=== PATIENT | female | born 1955 | race Caucasian/White ===

== ENCOUNTER 2018-12-15 23:20 | Inpatient (IN) | payer OTHER ==
[~2018-12-15] VITALS: Ht 162.6 cm; Wt 66.1 kg
[2018-12-16] VITALS (20 sets, daily range): BP systolic 88–115; BP diastolic 46–75
[2018-12-16 01:21] LABS: CHOLESTEROL 177 mg/dL (<200); HDL CHOLESTEROL 108 mg/dL (>40); LDL CHOLESTEROL 57 mg/dL (<100); TC:HDL 1.6 Ratio (Not establshd); TRIGLYCERIDE 60 mg/dL (<150); VLDL 12 mg/dL (<40)
[2018-12-16 01:26] LABS: SERUM ASSESSMENT Clear
[2018-12-16] MEDS ORDERED: MEDI-LYTE TABL1 EACH PO (01:59)
[2018-12-16] MEDS ORDERED: METFORMIN HCL500 MG PO (02:00)
[2018-12-16] MEDS ORDERED: LIORESAL 10 MG10 MG PO (02:01)
[2018-12-16] MEDS ORDERED: BUSPIRONE HCL10 MG PO (02:02)
[2018-12-16] MEDS ORDERED: CLARITIN10 MG PO (02:03)
[2018-12-16] MEDS ORDERED: PROPRANOLOL 1010 MG PO (02:05)
[2018-12-16] MEDS ORDERED: GUANFACINE HCL E2 MG PO (02:08)
[2018-12-16] MEDS ORDERED: EFFEXOR XR75 MG PO (02:37)
[2018-12-16] MEDS ORDERED: FLOMAX0.4 MG PO (02:37)
[2018-12-16] MEDS ORDERED: OMEPRAZOLE 20 M20 M1 PO (02:38)
[2018-12-16] MEDS ORDERED: MELOXICAM15 MG PO (02:38)
[2018-12-16] MEDS ORDERED: ZOCOR20 MG PO (02:39)
[2018-12-16] MEDS ORDERED: GABAPENTIN 100100 MG PO (02:40)
[2018-12-16] MEDS ORDERED: TRAMADOL 50 MG50 MG PO (02:41)
[2018-12-16] MEDS ORDERED: HYDROCHLOROTH12.5 M1 PO (02:43)
[2018-12-16] MEDS ORDERED: DEPAKOTE500 MG PO (02:44)
[2018-12-16] MEDS ORDERED: SYMBICORT160 MCG/4. INH (02:46)
[2018-12-16] MEDS ORDERED: KLOR-CON 1010 MEQ PO (02:51)
--- NOTE | 2018-12-16 05:18 | NUR ---
PT ARRIVED FROM [facility] AT 1230AM. PT WAS ON 3L NC, A&0X4. VSS. PT WAS CURRENTLY RATING HER PAIN AT 4/10 SHE GOT 50 MCG OF FENTANYL ENROUTE. ADMISSION ASSESSMENTS DONE. HEPARIN RESTARTED AT 0220 SEE HEPARIN FLOW SHEET. PT COMPLAINED OF CHEST PAIN AGAIN AT 0230 2 DOSES OF NITRO GIVEN, BP TOLERATED THE DOSES WELL, 02 BUMPED UP TO 4L, HEAD BANQUET WAITER/WAITRESS SENDY NOTIFIED, MORPHINE ORDERED, PT REPORT CHEST PAIN RELIEF AFTER MORPHINE WAS ADMINISTERD. ONETIME GI COCKTAIL ALSO ORDERED WELL. PT IS NOW SLEEPING IN ROOM, SHE HAS BEEN NPO SINCE ARRIVAL TO THE UNIT. PT APPEARS STABLE, WILL CONTINUE TO MONITOR
[2018-12-16 07:58] LABS: CALCIUM 8.7 mg/dL (8.5-10.1); CREATININE 1.1 mg/dL (0.6-1.0); MAGNESIUM 1.8 mg/dL (1.8-2.4); POTASSIUM 3.5 mmol/L (3.5-5.1)
--- NOTE | 2018-12-16 08:45 | EKG ---
[address] [address] ELECTROCARDIOGRAM REPORT Name: EVERTON OLIVEIRA Room #: 207-P ADM IN M.R.#: [id number] ������������������ Admission: 12/16/18 ������������������ Attend Phys: Mick Romero MD Discharge: ������������������ Date of : 55 Report #: [id number] ����������������������������������������������������������������� [id number] THIS REPORT FOR: //name// [facility] Test Date: 2018-12-16 Test Time: 06:19:12 Pat Name: EVERTON OLIVEIRA Department: Room: 207 P Gender: F Reporting Coordinator: BRIGID : 1955 Requested By: Georgie Parra Order Number: [id number] MD: Sam Vaughn Measurements Intervals [place] Rate: 83 P: 26 [place]: 130 QRS: 25 QRSD: 88 T: 231 QT: 444 QTc: 522 Interpretive Statements Sinus rhythm Atrial premature complex Abnormal T, consider ischemia, diffuse leads Prolonged QT interval No previous ECG available for comparison Electronically Signed On 12-16-2018 8:45:32 THERMOMETER PRODUCTION WORKER by Sam Vaughn [email or web address] ��������������������������������������������� <ELECTRONICALLY SIGNED> ���������������������������������������� By: Sam Vaughn MD, [facility] ��������������������������������������������� 12/16/18 0845 8 8 Sam Vaughn MD, [facility] /EPI
--- NOTE | 2018-12-16 10:46 | NUR ---
met with patient she admits with chest pain, transfer from [facility]. Patient lives in [place] with spouse. Spouse with emphysema and has home oxygen. Patient reports independent with adls and self care. She reports all needs on one level in independent home. She does not drive, spouse drives. Children live out of town in [place] and [place]. She is up ad everton in room. she plans home independently. She has lever tender once a week to assist with cleaning at home. patient reports independent with cooking. casemgt following
--- NOTE | 2018-12-16 11:23 | 2DMMODE ---
[facility] [address] [place] [address] 2 D/M-MODE ECHOCARDIOGRAM Name: EVERTON OLIVEIRA Room #: 207-P ADM IN M.R.#: [id number] ������������� Admission: 12/16/18 ������������� Attend Phys: Mick Romero, Discharge: ��� ������������� ��� Date of : 55 Date of Service: 12/16/18 1123 �� Report #: [id number] �������� ��������������������������������������������[id number] THIS REPORT FOR: //name// APPROVED REPORT Study performed: 12/16/2018 10:11:17 EXAM: Comprehensive 2D, Doppler, and color-flow Echocardiogram Patient Location: Bedside Room #: 207 Status: routine BSA: 1.71 HR: 93 bpm BP: 104/66 mmHg Rhythm: NSR Other Information Study Quality: Good Indications NSTEMI, CHF. Hx: COPD, HTN, HLP, DM. 2D Dimensions RVDd: 35.10 mm IVSd: 10.03 (7-11mm) LVOT Diam: 20.33 (18-24mm) LVDd: 44.74 mm PWd: 10.31 (7-11mm) Ascending Ao: 28.30 (22-36mm) LVDs: 36.23 (25-40mm) Aortic Root: 32.75 mm Volumes Left Atrial Volume (Systole) Single Plane 4CH: 39.35 mL Single Plane 2CH: 50.32 mL LA ESV Index: 29.00 mL/m2 Aortic Valve AoV Peak Yash.: 1.22 m/s AO Peak Gr.: 5.93 mmHg LVOT Max P.60 mmHg LVOT Max V: 0.81 m/s STEVIE Vmax: 2.15 cm2 Mitral Valve E/A Ratio: 2.1 MV Decel. Time: 130.70 ms MV E Max Yash.: 0.72 m/s [facility] [place] [address] 2 D/M-MODE ECHOCARDIOGRAM Name: EVERTON OLIVEIRA Room #: 207-[facility] IN M.R.#: [id number] ������������� Admission: 12/16/18 ������������� Attend Phys: Mick Romero, Discharge: ��� ������������� ��� Date of : 55 Date of Service: 12/16/18 1123 �� Report #: [id number] �������� ��������������������������������������������[id number] MV A Yash.: 0.35 m/s MV PHT: 37.90 ms IVRT: 65.74 ms Pulmonary Valve PV Peak Yash.: 0.82 m/s PV Peak Gr.: 2.70 mmHg Pulmonary Vein P Vein S: 0.41 m/s P Vein D: 0.52 m/s P Vein S/D Ratio: 0.79 Tricuspid Valve TR Peak Yash.: 2.72 m/s RAP Estimate: 10.00 mmHg TR Peak Gr.: 29.59 mmHg PA Pressure: 40.00 mmHg Left Ventricle The left ventricle is normal size. Apical and adjacent wall severe hypokinesis to akinesis There is normal left ventricular wall thickness. Left ventricular systolic function is severely decreased. LVEF is 25%. Right Ventricle The right ventricle is normal size. Right ventricle is mildly hypokinetic. Atria The left atrium size is normal. The right atrium size is normal. Aortic Valve The aortic valve is normal in structure. No aortic regurgitation is present. There is no aortic valvular stenosis. Mitral Valve The mitral valve is normal in structure. Mild mitral regurgitation. No evidence of mitral valve stenosis. Tricuspid Valve The tricuspid valve is normal in structure. Mild tricuspid regurgitation. Estimated PAP is 40mmHg. Pulmonic Valve The pulmonary valve is normal in structure. Mild pulmonic regurgitation. [facility] [address] [place] [address] 2 D/M-MODE ECHOCARDIOGRAM Name: EVERTON OLIVEIRA Room #: 207-[facility] IN .R.#: [id number] ������������� Admission: 12/16/18 ������������� Attend Phys: Mick Romero, Discharge: ��� ������������� ��� Date of : 55 Date of Service: 12/16/18 1123 �� Report #: [id number] �������� ��������������������������������������������[id number] Great Vessels The aortic root is normal in size. The ascending aorta is normal in size. IVC is normal in size and collapses <50% with inspiration. Pericardium There is no pericardial effusion. <Conclusion> The left ventricle is normal size. LVEF is 25%. Apical and adjacent wall severe hypokinesis to akinesis The aortic valve is normal in structure. The mitral valve is normal in structure. Mild mitral regurgitation. The tricuspid valve is normal in structure. Mild tricuspid regurgitation. Estimated PAP is 40mmHg. The pulmonary valve is normal in structure. Mild pulmonic regurgitation. There is no pericardial effusion. ��������������������������������������������� <ELECTRONICALLY SIGNED> ���������������������������������������� By: Mello Javier MD ��������������������������������������������� 12/16/18 1123 1123 1123 Mello Javier MD /INF
[2018-12-16 12:56] LABS: HEMATOCRIT 35.3 % (37.0-47.0); HEMOGLOBIN 11.5 gm/dL (12.0-15.0); MCH 30.5 pg (26.0-34.0); MCHC 32.5 g/dL (28.0-37.0); RBC 3.75 mil/uL (4.20-5.00); RDW 19.4 % (10.5-14.5); WBC 7.7 thou/uL (4.0-11.0)
--- NOTE | 2018-12-16 17:30 | NUR ---
PATIENT ALERT AND ORIENTED. VSS. RECEIVED PRN PAIN MED WITH PARTIAL RELIEF. HAD CARDIAC CATH THIS AM. RIGHT GROIN INCISION C/D/I. NO HEMATOMA NOTED. ORDERS NOTED. HEPARIN DRIP D/C. NSR ON TELI. NO CONCERNS AT THIS TIME. WILL CONTINUE TO MONITOR.
[2018-12-17] VITALS (7 sets, daily range): BP systolic 93–122; BP diastolic 53–64
[2018-12-17 00:06] LABS: GLYCOHEMOGLOBIN (HGB A1C) 5.2 % (4.8-5.6)
--- NOTE | 2018-12-17 03:28 | NUR ---
AT SHIFT CHANGE PT SLEEPING; ON BED REST UNTIL 20:39; R. GROIN SITE DRY; INTACT; NO HEMATOMA; NO C/O PAIN AT TOUCH; REMAINDED NOT TO MOVE R. LEG FOR ABOUT ONE HOUR AND HALF MORE (20:39); ST. UND[facility]STANDING; SBP BELOW 100'S; MONITORING IT; AT 20:08 BP 92/50; MAP (60); R. GROIN DRESSING DRY; INTACT; NO HEMATOMA; SNOW MAKER NOTIFIED; NO NEW ORDERS; AT 2210 PT. AWAKE; FULL ROM OF R. LEG; NO HEMATOMA PRESENT; PULSE 2/2; BP 105/54 (66); AOX4; NO C/O PAIN; GRAVES D/C AT 2218; ENCOURAGE TO DRINK WATER; [facility]; SBP THROUGH THE NIGHT BETWEEN 90-100'S; NO C/O DIZZINESS; N/V; MONITORING; HR WNL; ASSESSMENT CHARGED; FOLLOWING POC; WILL PASS ON REPORT.
[2018-12-17 05:12] LABS: HEMATOCRIT 31.5 % (37.0-47.0); HEMOGLOBIN 10.5 gm/dL (12.0-15.0); MCH 31.4 pg (26.0-34.0); MCHC 33.4 g/dL (28.0-37.0); RBC 3.35 mil/uL (4.20-5.00); RDW 19.4 % (10.5-14.5); WBC 10.9 thou/uL (4.0-11.0)
[2018-12-17 05:21] LABS: CALCIUM 9.2 mg/dL (8.5-10.1); CREATININE 1.2 mg/dL (0.6-1.0); MAGNESIUM 1.6 mg/dL (1.8-2.4); POTASSIUM 3.5 mmol/L (3.5-5.1)
--- NOTE | 2018-12-17 08:43 | EKG ---
[address] [address] ELECTROCARDIOGRAM REPORT Name: EVERTON OLIVEIRA Room #: 207-P ADM IN M.R.#: [id number] ������������������ Admission: 12/16/18 ������������������ Attend Phys: Mick Romero MD Discharge: ������������������ Date of : 55 Report #: [id number] ����������������������������������������������������������������� [id number] THIS REPORT FOR: //name// [facility] Test Date: 2018-12-17 Test Time: 07:21:26 Pat Name: EVERTON OLIVEIRA Department: Room: 207 P Gender: F Funnel Setter: BRIGID : 1955 Requested By: Jessi Sena Order Number: [id number] MD: Sam Vaughn Measurements Intervals [place] Rate: 90 P: 68 NC: 152 QRS: 25 QRSD: 88 T: 232 QT: 461 QTc: 564 Interpretive Statements Sinus rhythm Abnormal T, probable ischemia, widespread Prolonged QT interval Compared to ECG 12/16/2018 06:19:12 No significant changes Electronically Signed On 12-17-2018 8:42:50 INSURANCE OFFICE SUPERVISOR by Sam Vaughn [email or web address] ��������������������������������������������� <ELECTRONICALLY SIGNED> ���������������������������������������� By: Sam Vaughn MD, [facility] ��������������������������������������������� 12/17/18 0842 0 0 Sam Vaughn MD, [facility] /EPI
--- NOTE | 2018-12-17 13:15 | CATHLAB ---
[facility] [address] [place] [address] INVASIVE PROCEDURE REPORT Name: EVERTON OLIVEIRA Room #: 207-P ADM IN M.R.#: [id number] ������������� Admission: 12/16/18 ������������� Attend Phys: Mick Romero, Discharge: ��� ������������� ��� Date of : 55 Date of Service: 12/17/18 1315 �� Report #: [id number] �������� ��������������������������������������������[id number] THIS REPORT FOR: //name// APPROVED REPORT Study performed: 12/16/2018 11:49:03 Patient Details Patient Status: In-Patient Room #: The patient is a 63 year-old female Event Personnel Cheikh Armstrong Hand Riveter, Ayanna Werner RN RN, Eliceo Sam RN RN, Nora Mott RTR, LANDRY Moon, Joselo Stafford Monitor Procedures Performed Right and Left Heart Cath w/or w/o Coronarie [id number] [facility] Aortogram Abdominal Peripheral Angio [id number] Indication Chest pain Procedure Narrative The Right Groin^ was infiltrated with 1% Lidocaine subcutaneous anesthesia. A PINNACLE 6FR Sheath #[id number] sheath was inserted into the RFA^. Coronary angiography was performed using coronary diagnostic catheters. The right coronary system was accessed and visualized with a JR4 catheter. The left coronary system was accessed and visualized with a JL4 catheter. The left ventricle was accessed and visualized with a PIGTAIL catheter. Left ventriculogram was performed in 30 degree projection. An aortogram of the abdominal aorta was performed. Closure device was deployed with a 6 Fr MYNXGRIP 6/7F #[id number]. The patient tolerated the procedure well and there were no complications associated with the procedure. There was no hematoma. Intraoperative Conscious Sedation Sedation start time: 13.07 Case end Time: 13.52 Versed 1 mg Fluoro Time: 3.17 minutes Dose: DAP 2777 cGycm2 273 mGy [facility] [place] [address] INVASIVE PROCEDURE REPORT Name: EVERTON OLIVEIRA Room #: 207-P [facility] IN ..#: [id number] ������������� Admission: 12/16/18 ������������� Attend Phys: Mick Romero, Discharge: ��� ������������� ��� Date of : 55 Date of Service: 12/17/18 1315 �� Report #: [id number] �������� ��������������������������������������������[id number] Hemodynamics The right atrial mean pressure is 23/17 mmHg. The right ventricular pressure is 50/13 mmHg. The pulmonary artery pressure is 49/23 mmHg with a mean of 36 mmHg. The mean pulmonary capillary wedge pressure is 30 mmHg. The aortic pressure is 124/74 mmHg with a mean of 92 mmHg. The left ventricular pressure is 120/16 mmHg with a mean of mmHg. The left ventricular end diastolic pressure is 36 mmHg. The cardiac output using thermo method is 3.20 L/min. The cardiac index using thermo method is 1.87 L/min/m2. Conclusion #1 successful right heart catheterization with cardiac output by thermodilution see above hemodynamics #2 left ventriculogram revealing what appears to be a Takatsubo with only basilar function.'s extensive anterior apical inferior apical hypokinesis. EF 30% #3 abdominal aortogram revealing mild aortic ectasia mild plaquing in bilateral iliac system no aneurysm #4 essentially normal coronary anatomy minimal plaquing noted in proximal LAD. Right dominant system no occlusive disease Recommendations and plan: Moderate elevated pulmonary pressures. IV Lasix given in the catheterization lab. Transfer to CCU in improving condition. 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 We will initiate aceARB beta gloria diuretic as indicated ��������������������������������������������� <ELECTRONICALLY SIGNED> ���������������������������������������� By: Cheikh Armstrong MD, FACC ��������������������������������������������� 12/17/18 1315 1315 14 Cheikh Armstrong MD, FACC /INF
--- NOTE | 2018-12-17 14:10 | NUR ---
pt dcing home today. no cm interventions indicated.
[2018-12-17] MEDS ORDERED: CARVEDILOL3.125 MG PO (14:32)
[2018-12-17] MEDS ORDERED: COZAAR 25 MG TA25 M1 PO (14:33)
[2018-12-17] MEDS ORDERED: SPIRIVA INH (14:34)
[2018-12-17] MEDS ORDERED: VENTOLIN HFA 1818 GM INH (14:35)
[2018-12-17] MEDS ORDERED: PREDNISONE 10 M10 MG PO (14:35)
--- NOTE | 2018-12-17 17:48 | NUR ---
ASSESSMENT CHARTED. PT ALERT AND ORIENTED WITH FORGETFULNESS THIS AM. HAD CARDIAC CATH. NO HEMATOMA NOTED. SOB NOTED WITH ACTIVITY. RT TREAMENT GIVEN ORDERED. SR TO ST ON TELE. WILL CONTINUE TO MONITOR.
--- NOTE | 2018-12-17 18:21 | NUR ---
PATIENT ALERT AND ORIENTED. VSS. DENIED HAVING PAIN OR DISCOMFORT. REPORT FEELING MUCGH BETTER. SEEN BY DR. DECKER. ORDERS GIVEN TO DISCHARGE PT TO HOME. DISCHARGE INSTRUCTIONS GIVEN TO PT. PT VERBERLIZE UNDERSTANDING.
[2018-12-17 22:10] LABS: GLYCOHEMOGLOBIN (HGB A1C) 5.2 % (4.8-5.6)
== END 2018-12-17 18:24 | disposition home or self-care (01) | DRG 281 ==
LOC: 2N 23:20 → ENTRNSPT 12-17 18:02 → 2N 12-17 18:24
PROVIDERS: Internal Medicine Cardiovascular Disease; Nurse Practitioner Acute Care; ADMIT Internal Medicine
PROC: B2111ZZ Fluoroscopy of Multiple Coronary Arteries using Low Osmolar Contrast (ICD-10-PCS; principal; 2018-12-16)
PROC: B2151ZZ Fluoroscopy of Left Heart using Low Osmolar Contrast (ICD-10-PCS; principal; 2018-12-16)
PROC: B4101ZZ Fluoroscopy of Abdominal Aorta using Low Osmolar Contrast (ICD-10-PCS; principal; 2018-12-16)
PROC: 4A023N8 Measurement of Cardiac Sampling and Pressure, Bilateral, Percutaneous Approach (ICD-10-PCS; principal; 2018-12-16)
DX: I21.4 Non-ST elevation (NSTEMI) myocardial infarction (principal); N17.9 Acute kidney failure, unspecified; J96.10 Chronic respiratory failure, unspecified whether with hypoxia or hypercapnia; J44.1 Chronic obstructive pulmonary disease with (acute) exacerbation; I13.0 Hypertensive heart and chronic kidney disease with heart failure and stage 1 through stage 4 chronic kidney disease, or unspecified chronic kidney disease; E03.9 Hypothyroidism, unspecified; F17.210 Nicotine dependence, cigarettes, uncomplicated; E11.22 Type 2 diabetes mellitus with diabetic chronic kidney disease; E83.42 Hypomagnesemia; E78.5 Hyperlipidemia, unspecified; I50.9 Heart failure, unspecified; N18.9 Chronic kidney disease, unspecified; Z71.6 Tobacco abuse counseling; Z88.1 Allergy status to other antibiotic agents; Z88.2 Allergy status to sulfonamides; Z85.830 Personal history of malignant neoplasm of bone; Z88.8 Allergy status to other drugs, medicaments and biological substances; Z90.49 Acquired absence of other specified parts of digestive tract; Z79.899 Other long term (current) drug therapy
CPT/HCPCS: 10081